=== PATIENT | female | born 1950 | race Caucasian/White ===

== ENCOUNTER → 2023-10-07 06:30 | Outpatient (REF) | payer MEDICARE, OTHER, SELFPAY ==
[2023-10-07 07:51] LABS: % Basophils 0.4 % (0-2); % Eosinophils 1.5 % (0-6); % Immature Granulocytes 0.2 % (0-0.5); % Neutrophils 29.9 % (42.2-75.2); Absolute Eosinophils 0.1 10^3/uL (0-0.7); Absolute Lymphocytes 5.5 10^3/uL (1.2-3.4); Absolute Monocytes 0.6 10^3/uL (0.1-0.6); Absolute Neutrophils 2.7 10^3/uL (1.4-6.5); Hematocrit 42.8 % (37.0-47.0); Hemoglobin 13.9 g/dL (12.0-16.0); Mean Corp Hgb Conc. 32.5 g/dL (33.0-37.0); Mean Corpuscular Hgb 29.1 pg (27.0-31.0); Mean Corpuscular Volume 89.5 fL (81.0-99.0); Mean Platelet Volume 11.1 fL (7.4-10.4); Nucleated Red Blood Cells % 0 %; Platelet Count 200 10^3/uL (130-400); Red Cell Dist. Width 12.5 % (11.5-14.5)
[2023-10-07 08:02] LABS: Red Blood Cell Count 4.7 10^6/uL (4.20-5.40)
[2023-10-07 09:55] LABS: ALT (SGPT) 17 U/L (0-35); AST (SGOT) 27 U/L (14-36); Albumin 4.3 g/dl (3.5-5.0); Alkaline Phosphatase 53 U/L (38-126); Blood Urea Nitrogen 20 mg/dl (7-17); Calcium 9.2 mg/dl (8.4-10.2); Carbon Dioxide 28 mmol/L (22-30); Chloride 99 mmol/L (98-107); Glucose 88 mg/dl (70-99); HDL Cholesterol 81 mg/dl; LDL Cholesterol, Calculated 75 mg/dl; Potassium 4.5 mmol/L (3.5-5.1); Sodium 134 mmol/L (135-145); Total Bilirubin 0.7 mg/dl (0.2-1.3); Total Cholesterol 165 mg/dl (50-199); Total Protein 6.8 g/dl (6.3-8.2); Triglyceride 49 mg/dl (10-149); Very Low Density Lipoprotein 9 mg/dl (0-30); eGFR > 60.00
[2023-10-07 10:10] LABS: Free T4 1.15 ng/dl (0.78-2.19); Vitamin D, 25-OH*** 44.4 ng/mL (30-80)
[2023-10-07 10:24] LABS: TSH 0.25 uIU/ml (0.47-4.68)
== END ==
LOC: REG 06:30
PROVIDERS: ATTENDING PHYSICIAN Family Medicine
DX: Z00.01 Encounter for general adult medical examination with abnormal findings (principal); I10 Essential (primary) hypertension; R53.83 Other fatigue; E78.5 Hyperlipidemia, unspecified; E09.10 Drug or chemical induced diabetes mellitus with ketoacidosis without coma; D30.02 Benign neoplasm of left kidney; E55.9 Vitamin D deficiency, unspecified; Z71.89 Other specified counseling
CPT/HCPCS: 36415; 80053; 80061; 82306; 84439; 84443; 85025

== ENCOUNTER → 2023-11-04 08:33 | Outpatient (REF) | payer MEDICARE, OTHER, SELFPAY | LOC: WDC 08:33 | PROVIDERS: ATTENDING PHYSICIAN Family Medicine; FAMILY PHYSICIAN Family Medicine | DX: Z12.31 Encounter for screening mammogram for malignant neoplasm of breast (principal) | CPT/HCPCS: 77063; 77067 ==

== ENCOUNTER → 2024-11-09 07:29 | Outpatient (REF) | payer MEDICARE, OTHER, SELFPAY ==
[2024-11-09 08:27] LABS: Hematocrit 42.9 % (37.0-47.0); Hemoglobin 14.0 g/dL (12.0-16.0); Mean Corp Hgb Conc. 32.6 g/dL (33.0-37.0); Mean Corpuscular Volume 89.2 fL (81.0-99.0); Platelet Count 197 10^3/uL (130-400); Red Cell Dist. Width 13.2 % (11.5-14.5)
[2024-11-09 08:46] LABS: ALT (SGPT) 24 U/L (0-35); AST (SGOT) 30 U/L (14-36); Albumin 4.8 g/dl (3.5-5.0); Alkaline Phosphatase 44 U/L (38-126); Blood Urea Nitrogen 20 mg/dl (7-17); Calcium 9.8 mg/dl (8.4-10.2); Carbon Dioxide 29 mmol/L (22-30); Chloride 100 mmol/L (98-107); Glucose 89 mg/dl (70-99); HDL Cholesterol 94 mg/dl; LDL Cholesterol, Calculated 80 mg/dl; Potassium 4.6 mmol/L (3.5-5.1); Sodium 134 mmol/L (135-145); Total Protein 7.4 g/dl (6.3-8.2); Very Low Density Lipoprotein 11 mg/dl (0-30); eGFR > 60.00
[2024-11-09 08:48] LABS: Nucleated Red Blood Cells % 0 %
[2024-11-09 08:59] LABS: Vitamin D, 25-OH*** 51.3 ng/mL (30-80)
[2024-11-09 09:13] LABS: TSH 0.44 uIU/ml (0.47-4.68)
== END ==
LOC: WDC 07:29
PROVIDERS: ATTENDING PHYSICIAN Family Medicine; FAMILY PHYSICIAN Family Medicine
DX: Z12.31 Encounter for screening mammogram for malignant neoplasm of breast (principal); E55.9 Vitamin D deficiency, unspecified; E78.5 Hyperlipidemia, unspecified; R53.83 Other fatigue; I10 Essential (primary) hypertension
CPT/HCPCS: 36415; 80053; 80061; 82306; 84443; 85025